=== PATIENT | female | born 1950 | race Caucasian/White ===

== ENCOUNTER 2019-06-24 10:26 | Emergency (ER) | payer MEDICARE ==
[~2019-06-24] VITALS: Ht 167.6 cm; Wt 59.9 kg
[2019-06-24 10:30] VITALS: BP 124/72
--- NOTE | 2019-06-24 11:16 | PHYS DOC ---
Past Medical History Past Medical History: A-Fib, Asthma, Fibromyalgia, Hypertension, Other Additional Past Medical Histor: PERIPHERAL NEUROPATHY, CHRONIC FATIGUE SYNDROME, JOINT PROBLEMS Past Surgical History: Cholecystectomy, Hip Replacement, Other Additional Past Surgical Histo: CARDIAC ABLATION, HERNIA REPAIR Alcohol Use: Rarely Drug Use: None Adult General Chief Complaint Chief Complaint: ANKLE PROBLEM HPI HPI Patient is a 68 year old female with history of A. fib, fibromyalgia, hypertension, who presents to the ED today with bruising on the right lateral ankle as well as slight pain to this region but she noted yesterday, patient denies any known injury. Patient states the pain to the area is only on touching the region. Review of Systems Review of Systems Constitutional: Denies fever or chills [] Musculoskeletal: Reports right lateral ankle bruising and pain Integument: Denies rash or skin lesions [] Neurologic: Denies headache, focal weakness or sensory changes [] All other systems were reviewed and found to be within normal limits, except as documented in this note. Allergies Allergies Allergies Coded Allergies Type Severity Reaction Last Updated Verified No Known Drug Allergies 02/03/15 No Physical Exam Physical Exam Constitutional: Well developed, well nourished, no acute distress, non-toxic appearance. [] Skin: Warm, dry, no erythema, no rash. [] Back: No tenderness, no CVA tenderness. [] Extremities: Right ankle with no obvious deformity, bruising noted on the right lateral ankle. There is a couple insect bite macdonald noted on the right ankle as well as the left lower extremity. Full range of motion to the right ankle and foot. +1 right pedal pulse. Cap refill less than 2 seconds lower extremity. Neurologic: Alert and oriented X 3, normal motor function, normal sensory function, no focal deficits noted. [] Psychologic: Affect normal, judgement normal, mood normal. [] EKG EKG [] Radiology/Procedures Radiology/Procedures []PROCEDURE: ANKLE RIGHT 3V Indication:Pain and swelling for 2 days. TECHNIQUE: 3 views of the right ankle COMPARISON:None FINDINGS/ impression: No acute fractures or dislocation. Mild midfoot osteoarthritis. Electronically signed by: Emil Kinsey DO (06/24/2019 11:16 AM) [facility] DICTATED and SIGNED BY: EMIL KINSEY DO DATE: 06/24/19 1110 Course & Med Decision Making Course & Med Decision Making Pertinent Labs and Imaging studies reviewed. (See chart for details) This is a 68-year-old female patient presented to the ED today with complaints of right ankle bruising and pain that began yesterday. No known injury. Right ankle x-rays interpreted by radiologist are negative for any acute findings. Patient was discharged to home. Ice elevation encouraged. OTC pain relievers. F/u with Ortho Dragon Disclaimer Dragon Disclaimer This electronic medical record was generated, in whole or in part, using a voice recognition dictation system. Departure Departure Impression: Primary Impression: Right ankle pain Disposition: HOME, SELF-CARE Condition: STABLE Referrals: SUNNY ELY (PCP) KODAK JOE MD follow up in one week Patient Instructions: Ankle Pain Additional Instructions: You were evaluated in the emergency for right ankle pain. Your right ankle x- rays were negative for any acute findings, try to ice and elevate the extremity. You can take [id number] pain relievers as needed. Problem Qualifiers Primary Impression: Right ankle pain Chronicity: acute Qualified Codes: M25.571 - Pain in right ankle and joints of right foot IONA ANDREWS APRN Jun 24, 2019 11:16
--- NOTE | 2019-06-24 11:19 | RAD ---
Indication:Pain and swelling for 2 days. TECHNIQUE: 3 views of the right ankle COMPARISON:None FINDINGS/ impression: No acute fractures or dislocation. Mild midfoot osteoarthritis. Electronically signed by: Emil Kinsey DO (06/24/2019 11:16 AM) [facility]
== END 2019-06-24 12:05 | disposition home or self-care (01) ==
LOC: ER 10:26
DX: S90.01XA Contusion of right ankle, initial encounter (principal); J45.909 Unspecified asthma, uncomplicated; I10 Essential (primary) hypertension; I48.91 Unspecified atrial fibrillation; R53.82 Chronic fatigue, unspecified; Z96.649 Presence of unspecified artificial hip joint; X58.XXXA Exposure to other specified factors, initial encounter; Y93.89 Activity, other specified; Y92.89 Other specified places as the place of occurrence of the external cause; Y99.8 Other external cause status
CPT/HCPCS: 73610; 99284